=== PATIENT | female | born 1995 | race Caucasian/White ===

== ENCOUNTER 2023-08-02 13:10 | Emergency (ER) | payer SELFPAY ==
[~2023-08-02] VITALS: Ht 160 cm; Wt 67.8 kg
[2023-08-02 13:16] VITALS: BP 107/68; PULSE 92; RESP 16; TEMP 98.6; O2SAT 100
[2023-08-02] MEDS ORDERED: LORazepam 0.5 MG TAB PO ONE (14:15)
[2023-08-02] MEDS: ACETAMINOPHEN EXTRA STRENGTH 500 MG TAB PO ONE (14:35)
[2023-08-02] MEDS ORDERED: HYDR25CA1 PO (15:18)
[2023-08-02] MEDS ORDERED: IBUP-2213 PO (15:18)
[2023-08-02 15:25] VITALS: BP 107/68; PULSE 92; RESP 16; TEMP 98.6; O2SAT 100
== END 2023-08-02 15:26 | disposition home or self-care (01) ==
LOC: MED 13:10
DX: R07.9 Chest pain, unspecified (principal); F41.9 Anxiety disorder, unspecified; Z79.899 Other long term (current) drug therapy
CPT/HCPCS: 71045; 81025; 82948; 93005; 99283; 99285